=== PATIENT | female | born 1950 | race Caucasian/White ===

== ENCOUNTER 2025-02-11 15:56 | Emergency (ER) | payer MEDICARE, SELFPAY ==
[2025-02-11] VITALS (45 sets, daily range): BP systolic 74–129; BP diastolic 42–110; PULSE 90–100; RESP 18–33; TEMP 36.7; O2SAT 90–100; BMI 25.4
--- NOTE | 2025-02-11 16:31 | EKG_ITS ---
[address] [address] Test Date: 2025-02-11 Pat Name: Lizzie Casarez Department: [facility] Room: Gender: Female Education Program Manager: KENYETTA : 1950 Requested By: Order Number: [id number] Reading MD: Delano Tee Measurements Intervals [place] Rate: 92 P: 62 MO: 186 QRS: -40 QRSD: 152 T: 86 QT: 466 QTc: 576 Interpretive Statements Normal sinus rhythm Left axis deviation Left bundle branch block Electronically Signed On 02-14-2025 0:11:09 PDT by Delano Tee
[2025-02-11 16:50] LABS: Add Manual Diff / Slide Review NO; Basophils Absolute Auto 100 /uL (0-100); Basophils Percent Auto 0.7 % (0-2); Eosinophils Absolute Auto 0 /uL (0-450); Eosinophils Percent Auto 0.1 % (2-4); Hematocrit 41.9 % (36-46); Hemoglobin 13.4 g/dL (12.0-16.0); Lymphocytes Absolute Auto 900 /uL (1100-4500); Lymphocytes Percent Auto 7.2 % (25-40); Mean Corpuscular Hemoglobin 30.6 PG (26-34); Mean Corpuscular Volume 95.7 fL (80-100); Monocytes Absolute Auto 400 /uL (0-900); Monocytes Percent Auto 3.1 % (3-14); Neutrophils Absolute Auto 10900 /uL (1500-7000); Neutrophils Percent Auto 88.9 % (50-75); Platelet Count 269 X10^3/uL (150-400); Red Blood Cell Count 4.37 X10^6/uL (4.0-5.2); White Blood Cell Count 12.2 X10^3/uL (4.5-11.0)
[2025-02-11 16:51] LABS: Base Excess VBG -5.7 mmol/L (0-4); HCO3 VBG 19 mmol/L (24-28); Oxygen Saturation VBG 67 % (70-75); PCO2 VBG 33.3 mmHg (45-50); PO2 VBG 36 mmHg (35-45); Total CO2 VBG 18 mmol/L (24-29); pH VBG 7.36 (7.33-7.43)
[2025-02-11 17:02] LABS: Alanine Aminotransferase 34 IU/L (<35); Albumin 4.3 g/dL (3.5-5.0); Albumin Globulin Ratio 1.7 (1.0-2.8); Alkaline Phosphatase 83 U/L (38-126); Aspartate Aminotransferase 39 IU/L (14-36); BUN Creatinine Ratio 23.1 (6-22); Bilirubin Total 1.2 mg/dL (0.2-1.3); Blood Urea Nitrogen 39 mg/dL (7-17); Calcium 9.2 mg/dL (8.4-10.2); Carbon Dioxide 14 mmol/L (22-32); Chloride 95 mmol/L (98-107); Estimated Glomerular Filt Rate 31 mL/min (>60); Globulin 2.6 g/dL (1.7-4.1); HEMOLYSIS < 15 (0-50); Lipase 26 U/L (23-300); Sodium 129 mmol/L (137-145); Total Protein 6.9 g/dL (6.3-8.2)
[2025-02-11 17:06] LABS: Potassium 5.4 mmol/L (3.4-5.1)
[2025-02-11 17:14] LABS: Glucose 790 mg/dL (70-99)
[2025-02-11] MEDS: INSULIN REGULAR 100 UNIT/ML 3 ML VIAL 15 UNIT IV (18:02)
[2025-02-11] MEDS: SODIUM CHLORIDE 0.9% 1,000 ML 1000 ML IV (18:04)
--- NOTE | 2025-02-11 18:06 | ED.GENADULT ---
HPI - General Adult General Chief complaint: Diabetic Problem Stated complaint: high blood sugar 400 Time Seen by Provider: 02/11/25 18:05 Source: patient and family Mode of arrival: Ambulatory History of Present Illness HPI narrative: 74-year-old female traveling with her from home state of [place], history of diabetes, uses insulin pump, had difficulty 0500 this morning felt like she could not program the pump with phone connection, data seemed to be dumped from the program. Glucose measurements over 400. Denies abdominal pain, nausea, vomiting, chest pain, cough, shortness of breath. No headache or sore throat. Related Data Home Medications ?Medication ?Instructions ?Recorded ?Confirmed atorvastatin 40 mg tablet 40 mg PO DAILY 02/12/25 02/12/25 doxycycline monohydrate 100 mg 100 mg PO .Once 02/12/25 02/12/25 tablet gabapentin 100 mg capsule 100 mg PO DAILY 02/12/25 02/12/25 insulin lispro-aabc 100 unit/mL 02/12/25 subcutaneous solution (Lyumjev U-100 Insulin) levothyroxine 125 mcg tablet 125 mcg PO DAILY 02/12/25 02/12/25 (Synthroid) montelukast 10 mg tablet 10 mg PO ONCE PM 02/12/25 02/12/25 omeprazole 40 mg capsule,delayed 40 mg PO DAILY 02/12/25 02/12/25 release tolterodine 2 mg capsule,extended 2 mg PO Q24H 02/12/25 02/12/25 release 24 hr valsartan 160 1 tab PO DAILY 02/12/25 02/12/25 mg-hydrochlorothiazide 12.5 mg tablet venlafaxine 75 mg capsule,extended 75 mg PO DAILY 02/12/25 02/12/25 release 24 hr Allergies Allergy/AdvReac Type Severity Reaction Status Date / Time Penicillins Allergy Mild Hallucinati Verified 02/12/25 00:52 ng Patient History Social History Smoking Status: Never smoker Smoking Status: Never smoker Exam Narrative Exam Narrative: GENERAL: Well-developed patient, in mild distress. HEAD: Atraumatic. Normocephalic. EYES: Pupils equal round and reactive. Extraocular motions intact. No scleral icterus. No injection or drainage. ENT: Nose without bleeding, purulent drainage. Throat without erythema, tonsillar hypertrophy or exudate. Airway patent. NECK: Trachea midline. Non tender CARDIOVASCULAR: Regular rate and rhythm without murmurs, gallops, or rubs. RESPIRATORY: Clear to auscultation. Breath sounds equal bilaterally. No wheezes, rales, or rhonchi. GASTROINTESTINAL: Abdomen soft, non-tender, nondistended. EXTREMITIES: No edema or joint tenderness. BACK: Nontender without deformity or crepitance. No flank tenderness. NEURO: AOx3. Motor functions grossly nonfocal. SKIN: No rash or erythema of visible areas Initial Vital Signs Initial Vital Signs: Vital Signs Temperature 98.1 F 02/11/25 16:09 Pulse Rate 98 H 02/11/25 16:09 Respiratory Rate 20 02/11/25 16:09 Blood Pressure 109/53 L 02/11/25 16:09 Pulse Oximetry 99 02/11/25 16:09 Oxygen Delivery Method Room Air 02/11/25 16:09 Course Orders Ordered: Discontinued Medications Aspirin (Aspirin 81 Mg Chew Tab) 324 mg PO NOW ONE Stop: 02/12/25 01:01 Last Admin: 02/12/25 01:46 Dose: 324 mg Documented By: LITZY Heparin Sodium (Porcine) (Heparin 5,000 Unit/Ml Vial) 3,500 unit 60 unit/kg (3500 unit) IV NOW ONE Stop: 02/11/25 23:10 Last Admin: 02/12/25 00:21 Dose: 3,500 unit Documented By: LITZY Sodium Chloride (Normal Saline 0.9%) 1,000 mls @ 1,000 mls/hr IV BOLUS ONE Stop: 02/11/25 18:24 Last Infusion: 02/11/25 19:45 Dose: Infused Documented By: Admin: 02/11/25 18:04 Dose: 1,000 mls/hr Documented By: JOCE Lactated Ringer's (Lactated Ringers) 1,000 mls @ 1,000 mls/hr IV BOLUS ONE Stop: 02/11/25 19:06 Last Infusion: 02/11/25 19:45 Dose: Infused Documented By: Admin: 02/11/25 18:30 Dose: 1,000 mls/hr Documented By: JOCE INSULIN DRIP PREMIX (Myxredlin Drip Premix) 100 unit in 100 mls @ 6.124 mls/hr IV TITRATE MUKUND; Protocol Last Titration: 02/12/25 07:05 Dose: Infused Documented By: RLC Co-signed By: JOCE Titration: 02/12/25 06:05 Dose: 0.02 unit/kg/hr, 1.225 mls/hr Documented By: RLC Co-signed By: ROBY Titration: 02/12/25 01:05 Dose: 0.05 unit/kg/hr, 3.06 mls/hr Documented By: RLC Co-signed By: CHRIS Admin: 02/11/25 21:26 Dose: 0.1 unit/kg/hr, 6.124 mls/hr Documented By: RLC Co-signed By: CHRIS Lactated Ringer's (Lactated Ringers) 1,000 mls @ 1,000 mls/hr IV BOLUS ONE Stop: 02/11/25 20:43 Last Infusion: 02/11/25 20:36 Dose: Infused Documented By: Admin: 02/11/25 19:58 Dose: 1,000 mls/hr Documented By: RLC Sodium Chloride (Normal Saline 0.9%) 1,000 mls @ 250 mls/hr IV CONT MUKUDN Last Infusion: 02/12/25 07:19 Dose: Infused Documented By: Infusion: 02/11/25 21:53 Dose: 0 mls/hr Documented By: Admin: 02/11/25 20:57 Dose: 250 mls/hr Documented By: RLC Potassium Chloride/Sodium Chloride (Ns With Kcl 20 Meq) 1,000 mls @ 150 mls/hr IV CONT MUKUND Last Infusion: 02/12/25 07:23 Dose: Infused Documented By: Infusion: 02/12/25 01:27 Dose: 0 mls/hr Documented By: Admin: 02/11/25 21:54 Dose: 150 mls/hr Documented By: RLC Heparin Sodium/Dextrose (Heparin Drip) 25,000 unit in 500 mls @ 14.696 mls/hr IV CONT MUKUND; Protocol Last Titration: 02/12/25 06:20 Dose: 11 units/kg/hr, 13.472 mls/hr Documented By: RLC Co-signed By: ROBY Admin: 02/12/25 00:22 Dose: 12 units/kg/hr, 14.696 mls/hr Documented By: RLC Co-signed By: DKB Potassium Chloride/Dextrose/Sod Cl (Dextrose 5%-0.45%Ns W/Kcl 20meq) 1,000 mls @ 150 mls/hr IV CONT [facility] Last Infusion: 02/12/25 07:05 Dose: Infused Documented By: Admin: 02/12/25 01:30 Dose: 150 mls/hr Documented By: LITZY Insulin Glargine (Insulin Glargine 100 Unit/Ml 3ml Pen) 36 unit SUBCUT NOW ONE Stop: 02/12/25 04:12 Last Admin: 02/12/25 04:16 Dose: 36 unit Documented By: LITZY Co-signed By: AB Insulin Human Regular (Insulin Regular 100 Unit/Ml 3 Ml Vial) 15 unit IV NOW ONE Stop: 02/11/25 17:26 Last Admin: 02/11/25 18:02 Dose: 15 unit Documented By: JOCE Co-signed By: AB Levothyroxine Sodium (Levothyroxine 125 Mcg Tablet) 125 mcg PO DAILY@0600 [facility] Last Admin: 02/12/25 06:25 Dose: 125 mcg Documented By: LITZY Ondansetron HCl (Ondansetron 4 Mg/2 Ml Inj) 4 mg IV NOW PRN PRN Reason: Nausea And Vomiting Ondansetron HCl (Ondansetron 4 Mg Odt) 4 mg PO NOW PRN PRN Reason: Nausea And Vomiting Vital Signs Vital signs: Vital Signs - 8 hr 02/11/25 23:00 02/11/25 23:00 02/11/25 23:10 Pulse Rate 96 H 95 H Respiratory Rate 26 H 26 H Blood Pressure 98/55 L Pulse Oximetry 95 95 Oxygen Delivery Method Oxygen Flow Rate 02/11/25 23:10 02/11/25 23:30 02/11/25 23:32 Pulse Rate 94 H 93 H Respiratory Rate 28 H 29 H Blood Pressure 101/54 L Pulse Oximetry 95 95 Oxygen Delivery Method Oxygen Flow Rate 02/11/25 23:32 02/11/25 23:40 02/11/25 23:40 Pulse Rate 93 H Respiratory Rate 33 H Blood Pressure 95/51 L 98/54 L Pulse Oximetry 94 Oxygen Delivery Method Oxygen Flow Rate 02/11/25 23:50 02/11/25 23:50 02/12/25 00:00 Pulse Rate 94 H 97 H Respiratory Rate 21 21 Blood Pressure 88/50 L Pulse Oximetry 95 94 Oxygen Delivery Method Nasal Cannula Oxygen Flow Rate 1 02/12/25 00:00 02/12/25 00:10 02/12/25 00:10 Pulse Rate 94 H Respiratory Rate 27 H Blood Pressure 107/57 L 95/50 L Pulse Oximetry 95 Oxygen Delivery Method Oxygen Flow Rate 02/12/25 00:20 02/12/25 00:20 02/12/25 00:30 Pulse Rate 93 H 90 Respiratory Rate 40 H 31 H Blood Pressure 90/54 L Pulse Oximetry 95 96 Oxygen Delivery Method Oxygen Flow Rate 02/12/25 00:30 02/12/25 00:40 02/12/25 00:40 Pulse Rate 98 H Respiratory Rate 36 H Blood Pressure 91/54 L 111/58 L Pulse Oximetry 96 Oxygen Delivery Method Oxygen Flow Rate 02/12/25 00:50 02/12/25 00:50 02/12/25 01:00 Pulse Rate 91 H 94 H Respiratory Rate 29 H 33 H Blood Pressure 110/51 L Pulse Oximetry 96 94 Oxygen Delivery Method Nasal Cannula Oxygen Flow Rate 2 02/12/25 01:00 02/12/25 01:02 02/12/25 01:02 Pulse Rate 93 H Respiratory Rate 30 H Blood Pressure 98/28 L 93/45 L Pulse Oximetry 95 Oxygen Delivery Method Oxygen Flow Rate 02/12/25 01:05 02/12/25 01:05 02/12/25 01:10 Pulse Rate 95 H 93 H Respiratory Rate 31 H 21 Blood Pressure 106/53 L Pulse Oximetry 94 95 Oxygen Delivery Method Oxygen Flow Rate 02/12/25 01:10 02/12/25 01:20 02/12/25 01:20 Pulse Rate 95 H Respiratory Rate 37 H Blood Pressure 99/53 L 102/55 L Pulse Oximetry 94 Oxygen Delivery Method Oxygen Flow Rate 02/12/25 01:30 02/12/25 01:30 02/12/25 02:00 Pulse Rate 95 H Respiratory Rate 27 H Blood Pressure 108/53 L 98/55 L Pulse Oximetry 94 Oxygen Delivery Method Oxygen Flow Rate 02/12/25 02:00 02/12/25 03:31 02/12/25 04:00 Pulse Rate 92 H 91 H 90 Respiratory Rate 26 H 24 22 Blood Pressure Pulse Oximetry 93 89 L 94 Oxygen Delivery Method Nasal Cannula Room Air Nasal Cannula Oxygen Flow Rate 1 1 02/12/25 04:00 02/12/25 04:30 02/12/25 04:30 Pulse Rate 88 Respiratory Rate 21 Blood Pressure 104/59 L 105/59 L Pulse Oximetry 94 Oxygen Delivery Method Oxygen Flow Rate 02/12/25 05:00 02/12/25 05:00 Pulse Rate 89 Respiratory Rate 27 H Blood Pressure 113/75 Pulse Oximetry 95 Oxygen Delivery Method Nasal Cannula Oxygen Flow Rate 1 Medical Decision Making Lab Data Lab results reviewed: Yes I reviewed the patient's lab results. Lab results narrative: White blood cell count 41170, hemoglobin 13.4, platelets adequate. Glucose 790 quite elevated. BUN 39 with creatinine 1.69 both elevated, no comparisons available. Serum CO2 14. Anion gap 20. VBG 7.36 PH normal range noted. Sodium 129, potassium 5.4, chloride 95, serum CO2 14, anion gap 20. Slight AST elevation, other liver functions unremarkable. Lipase 26 normal. 02/12/25 05:31 02/12/25 05:31 Labs: Lab Results 02/11/25 02/11/25 02/11/25 Range/Units 16:40 16:44 18:55 WBC 12.2 H (4.5-11.0) X10^3/uL RBC 4.37 (4.0-5.2) X10^6/uL Hgb 13.4 (12.0-16.0) g/dL Hct 41.9 (36-46) % MCV 95.7 (80-100) fL MCH 30.6 (26-34) PG MCHC 32.0 (30-36) % RDW 15.0 H (11.6-14.8) % Plt Count 269 (150-400) X10^3/uL Neut % (Auto) 88.9 H (50-75) % Lymph % (Auto) 7.2 L (25-40) % Garden % (Auto) 3.1 (3-14) % Eos % (Auto) 0.1 L (2-4) % Baso % (Auto) 0.7 (0-2) % Neut # (Auto) 68844 H (6851-8919) /uL Lymph # (Auto) 900 L (3349-0568) /uL [place] # (Auto) 400 (0-900) /uL Eos # (Auto) 0 (0-450) /uL Baso # (Auto) 100 (0-100) /uL APTT (25.1-36.5) SECONDS VBG pH 7.36 (7.33-7.43) VBG pCO2 33.3 L (45-50) mmHg VBG pO2 36 (35-45) mmHg VBG HCO3 19 L (24-28) mmol/L VBG Total CO2 18 L (24-29) mmol/L VBG O2 Saturation 67 L (70-75) % VBG Base Excess -5.7 L (0-4) mmol/L Sodium 129 L 132 L (137-145) mmol/L Potassium 5.4 H 4.3 (3.4-5.1) mmol/L Chloride 95 L 101 (98-107) mmol/L Carbon Dioxide 14 L 11 L (22-32) mmol/L BUN 39 H 41 H (7-17) mg/dL Creatinine 1.69 H 1.86 H (0.52-1.04) mg/dL Estimated GFR 31 L 28 L (>60) mL/min BUN/Creatinine Ratio 23.1 H 22.0 (6-22) Glucose 790 H* 680 H* (70-99) mg/dL Calcium 9.2 8.8 (8.4-10.2) mg/dL Total Bilirubin 1.2 (0.2-1.3) mg/dL AST 39 H (14-36) IU/L ALT 34 (<35) IU/L Alkaline Phosphatase 83 (38-126) U/L Troponin I 0.192 H* (0.01-0.034) ng/mL Total Protein 6.9 (6.3-8.2) g/dL Albumin 4.3 (3.5-5.0) g/dL Globulin 2.6 (1.7-4.1) g/dL Albumin/Globulin Ratio 1.7 (1.0-2.8) Lipase 26 (23-300) U/L Ketones (<0.27) mmol/L 02/11/25 02/11/25 02/11/25 Range/Units 19:50 22:29 23:15 WBC (4.5-11.0) X10^3/uL RBC (4.0-5.2) X10^6/uL Hgb (12.0-16.0) g/dL Hct (36-46) % MCV (80-100) fL MCH (26-34) PG MCHC (30-36) % RDW (11.6-14.8) % Plt Count (150-400) X10^3/uL Neut % (Auto) (50-75) % Lymph % (Auto) (25-40) % [place] % (Auto) (3-14) % Eos % (Auto) (2-4) % Baso % (Auto) (0-2) % Neut # (Auto) (0649-4183) /uL Lymph # (Auto) (4254-9533) /uL Garden # (Auto) (0-900) /uL Eos # (Auto) (0-450) /uL Baso # (Auto) (0-100) /uL APTT 27 (25.1-36.5) SECONDS VBG pH (7.33-7.43) VBG pCO2 (45-50) mmHg VBG pO2 (35-45) mmHg VBG HCO3 (24-28) mmol/L VBG Total CO2 (24-29) mmol/L VBG O2 Saturation (70-75) % VBG Base Excess (0-4) mmol/L Sodium 135 L 133 L (137-145) mmol/L Potassium 4.0 4.2 (3.4-5.1) mmol/L Chloride 102 103 (98-107) mmol/L Carbon Dioxide 16 L 21 L (22-32) mmol/L BUN 40 H 38 H (7-17) mg/dL Creatinine 1.75 H 1.49 H (0.52-1.04) mg/dL Estimated GFR 30 L 37 L (>60) mL/min BUN/Creatinine Ratio 22.9 H 25.5 H (6-22) Glucose 476 H* D 394 H (70-99) mg/dL Calcium 8.7 8.7 (8.4-10.2) mg/dL Total Bilirubin (0.2-1.3) mg/dL AST (14-36) IU/L ALT (<35) IU/L Alkaline Phosphatase (38-126) U/L Troponin I 6.940 H* (0.01-0.034) ng/mL Total Protein (6.3-8.2) g/dL Albumin (3.5-5.0) g/dL Globulin (1.7-4.1) g/dL Albumin/Globulin Ratio (1.0-2.8) Lipase (23-300) U/L Ketones 1.40 H (<0.27) mmol/L 02/12/25 02/12/25 Range/Units 01:51 05:31 WBC (4.5-11.0) X10^3/uL RBC (4.0-5.2) X10^6/uL Hgb 11.7 L (12.0-16.0) g/dL Hct 34.3 L (36-46) % MCV (80-100) fL MCH (26-34) PG MCHC (30-36) % RDW (11.6-14.8) % Plt Count 247 (150-400) X10^3/uL Neut % (Auto) (50-75) % Lymph % (Auto) (25-40) % Garden % (Auto) (3-14) % Eos % (Auto) (2-4) % Baso % (Auto) (0-2) % Neut # (Auto) (6540-1074) /uL Lymph # (Auto) (0290-0326) /uL [place] # (Auto) (0-900) /uL Eos # (Auto) (0-450) /uL Baso # (Auto) (0-100) /uL APTT 82 H* D (25.1-36.5) SECONDS VBG pH (7.33-7.43) VBG pCO2 (45-50) mmHg VBG pO2 (35-45) mmHg VBG HCO3 (24-28) mmol/L VBG Total CO2 (24-29) mmol/L VBG O2 Saturation (70-75) % VBG Base Excess (0-4) mmol/L Sodium 137 136 L (137-145) mmol/L Potassium 3.9 4.2 (3.4-5.1) mmol/L Chloride 109 H 109 H (98-107) mmol/L Carbon Dioxide 22 23 (22-32) mmol/L BUN 36 H 37 H (7-17) mg/dL Creatinine 1.31 H 1.26 H (0.52-1.04) mg/dL Estimated GFR 43 L 45 L (>60) mL/min BUN/Creatinine Ratio 27.5 H 29.4 H (6-22) Glucose 186 H D 143 H (70-99) mg/dL Calcium 8.4 8.6 (8.4-10.2) mg/dL Total Bilirubin (0.2-1.3) mg/dL AST (14-36) IU/L ALT (<35) IU/L Alkaline Phosphatase (38-126) U/L Troponin I (0.01-0.034) ng/mL Total Protein (6.3-8.2) g/dL Albumin (3.5-5.0) g/dL Globulin (1.7-4.1) g/dL Albumin/Globulin Ratio (1.0-2.8) Lipase (23-300) U/L Ketones (<0.27) mmol/L Point of Care Testing Glucose POC 114 Urine Dip Bedside Urine Glucose 250 mg/dl Bedside Urine Bilirubin - Negative Bedside Urine Ketone - Negative Urine Specific [place] 1.010 Bedside Urine Occult Blood - Negative Bedside Urine pH 6.0 Bedside Urine Protein - Negative Bedside Urine Urobilinogen - Negative Bedside Urine Nitrite - Negative Bedside Urine Leukocytes - Negative Esterase Point of care testing: Point of Care Testing Glucose POC 114 Urine Dip Bedside Urine Glucose 250 mg/dl Bedside Urine Bilirubin - Negative Bedside Urine Ketone - Negative Urine Specific [place] 1.010 Bedside Urine Occult Blood - Negative Bedside Urine pH 6.0 Bedside Urine Protein - Negative Bedside Urine Urobilinogen - Negative Bedside Urine Nitrite - Negative Bedside Urine Leukocytes - Negative Esterase ECG Data Attestation: I personally reviewed and interpreted this ECG as follows: Interpretation: Normal sinus rhythm with rate of 92, left bundle branch block noted. MO 186, QRS 152, QTC 576. [facility] Narrative Medical decision making narrative: 74-year-old female traveling from [place], history of diabetes on insulin pump, insulin pump failure early this morning, no longer responding to commands from linked phone/jorge alberto, discontinued. Sugars been getting higher through the day. Triage blood sugar 790 noted. Anion gap 20. VBG shows pH 7.36. Ketones positive. IV fluid bolus, initial insulin 15 units had been ordered already. Patient had diminished blood pressure. Initial potassium slight elevation. Blood pressure decreased after IV insulin bolus and 1 L, will give 2nd L as Lactated Ringer's. Repeat BMP pending. DKA protocol insulin infusion ordered. Subsequent blood pressures improved. EKG performed from triage, shows left bundle branch pattern, no chest pain or shortness of breath. No comparisons, patient is from [place]. We will add troponin to initial draw, and send repeat interval troponin. Initial troponin 0.19 mild elevation, repeat troponin 6.94 quite elevated. Still not having any chest pain or shortness of breath. No nausea or vomiting or diaphoresis. However interval increase concerning for non type 2 injury elevation, we will treat for non STEMI for now, add IV heparin bolus then infusion. Oral aspirin. Transfer to cardiac catheterization lab capable facility. 2320, case discussed with cardiology [place] Dr. Tapia, does not feel that [employer] activation is warranted given lack of anginal/equivalents, LBBB on EKG noted without out of state comparisons, agrees with need for transfer for possible non STEMI, and initiation of heparin and aspirin. 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 0030, case discussed with [facility] hospitalist Dr. Hurtado, who accepts patient for transfer Serial BNP is, improving renal function, narrowing anion gap, glucose lowering into 400-300 range, transition to dextrose containing fluid once less glucose less than 250. 0300, bed to be available later this morning, EMS transport arranged for 0800 0700, transport arriving within the hour, transfer to [facility] as planned Critical Care Time Critical Care Time Critical Care Time: Yes Total Critical Care Time: 35 Attestation: The high probability of a clinically significant, sudden or life threatening deterioration of the [cardiopulmonary, endocrine, metabolic] system(s) required my full and direct attention, intervention and personal management. The aggregate critical care time was [35] minutes. This time is in addition to time spent performing reported procedures but includes the following: [x] Data Review and interpretation [x] Patient assessment and monitoring of vital signs [x] Documentation [x] Medication orders and management Discharge Plan Departure Patient Disposition: [facility] Clinical Impression: Diabetic ketoacidosis, Non-ST elevated myocardial infarction (non-STEMI) Prescriptions: No Action atorvastatin 40 mg tablet 40 mg PO DAILY doxycycline monohydrate 100 mg tablet 100 mg PO .Once tolterodine 2 mg capsule,extended release 24hr 2 mg PO Q24H omeprazole 40 mg capsule,delayed release(DR/EC) 40 mg PO DAILY levothyroxine [Synthroid] 125 mcg tablet 125 mcg PO DAILY montelukast 10 mg tablet 10 mg PO ONCE PM gabapentin 100 mg capsule 100 mg PO DAILY venlafaxine 75 mg capsule,extended release 24hr 75 mg PO DAILY valsartan-hydrochlorothiazide 160-12.5 mg tablet 1 tab PO DAILY Lyumjev U-100 Insulin 100 unit/mL solution Patient Comments: [NO ORIGINAL SIG]
[2025-02-11] MEDS: LACTATED RINGERS 1,000 ML 1000 ML IV ×2 (18:30→19:58)
[2025-02-11 19:21] LABS: Blood Urea Nitrogen 41 mg/dL (7-17); Calcium 8.8 mg/dL (8.4-10.2); Carbon Dioxide 11 mmol/L (22-32); Chloride 101 mmol/L (98-107); Estimated Glomerular Filt Rate 28 mL/min (>60); HEMOLYSIS < 15 (0-50); Potassium 4.3 mmol/L (3.4-5.1); Sodium 132 mmol/L (137-145)
[2025-02-11 19:32] LABS: Glucose 680 mg/dL (70-99)
[2025-02-11 19:33] LABS: Troponin I 0.192 ng/mL (0.01-0.034)
[2025-02-11] MEDS: SODIUM CHLORIDE 0.9% 1,000 ML 250 ML IV (20:57)
[2025-02-11 21:03] LABS: BUN Creatinine Ratio 22.9 (6-22); Blood Urea Nitrogen 40 mg/dL (7-17); Calcium 8.7 mg/dL (8.4-10.2); Carbon Dioxide 16 mmol/L (22-32); Chloride 102 mmol/L (98-107); Estimated Glomerular Filt Rate 30 mL/min (>60); Glucose 476 mg/dL (70-99); HEMOLYSIS < 15 (0-50); Sodium 135 mmol/L (137-145)
[2025-02-11] MEDS: INSULIN DRIP PREMIX 100 UNIT/100 ML PLAST..BAG 6.124 UNIT IV (21:26)
[2025-02-11] MEDS: KCL 20 MEQ IN NS 1,000 ML 150 MEQ IV (21:54)
[2025-02-11 22:51] LABS: BUN Creatinine Ratio 25.5 (6-22); Blood Urea Nitrogen 38 mg/dL (7-17); Calcium 8.7 mg/dL (8.4-10.2); Carbon Dioxide 21 mmol/L (22-32); Chloride 103 mmol/L (98-107); Estimated Glomerular Filt Rate 37 mL/min (>60); Glucose 394 mg/dL (70-99); HEMOLYSIS < 15 (0-50); Potassium 4.2 mmol/L (3.4-5.1); Sodium 133 mmol/L (137-145)
[2025-02-11 23:49] LABS: PTT Partial Thromboplastin Tim 27 SECONDS (25.1-36.5)
[2025-02-12] VITALS (24 sets, daily range): BP systolic 90–138; BP diastolic 28–75; PULSE 85–99; RESP 18–40; O2SAT 89–96
[2025-02-12] MEDS: HEPARIN 5,000 UNIT/ML VIAL 3500 UNIT IV (00:21)
[2025-02-12] MEDS: HEPARIN DRIP 25,000 UNIT/500 ML IV.SOLN 14.696 UNIT IV (00:22)
[2025-02-12] MEDS: DEXTROSE 5%-0.45NS W/KCL 20MEQ 1,000 ML 150 MEQ IV (01:30)
[2025-02-12] MEDS: ASPIRIN 81 MG CHEW TAB 324 MG PO (01:46)
[2025-02-12 02:12] LABS: BUN Creatinine Ratio 27.5 (6-22); Blood Urea Nitrogen 36 mg/dL (7-17); Calcium 8.4 mg/dL (8.4-10.2); Carbon Dioxide 22 mmol/L (22-32); Chloride 109 mmol/L (98-107); Estimated Glomerular Filt Rate 43 mL/min (>60); Glucose 186 mg/dL (70-99); HEMOLYSIS < 15 (0-50); Potassium 3.9 mmol/L (3.4-5.1); Sodium 137 mmol/L (137-145)
[2025-02-12] MEDS: INSULIN GLARGINE 100 UNIT/ML 3ML PEN 36 UNIT SUBCUT (04:16)
[2025-02-12 05:45] LABS: Hematocrit 34.3 % (36-46); Hemoglobin 11.7 g/dL (12.0-16.0); Platelet Count 247 X10^3/uL (150-400)
[2025-02-12 06:01] LABS: BUN Creatinine Ratio 29.4 (6-22); Blood Urea Nitrogen 37 mg/dL (7-17); Calcium 8.6 mg/dL (8.4-10.2); Carbon Dioxide 23 mmol/L (22-32); Chloride 109 mmol/L (98-107); Estimated Glomerular Filt Rate 45 mL/min (>60); Glucose 143 mg/dL (70-99); HEMOLYSIS < 15 (0-50); Potassium 4.2 mmol/L (3.4-5.1); Sodium 136 mmol/L (137-145)
[2025-02-12 06:17] LABS: PTT Partial Thromboplastin Tim 82 SECONDS (25.1-36.5)
[2025-02-12] MEDS: LEVOTHYROXINE 125 MCG TABLET PO (06:25)
== END 2025-02-12 08:20 | disposition short-term general hospital (02) ==
PROVIDERS: Emergency Medicine; Emergency Provider Emergency Medicine
DX: E11.10 Type 2 diabetes mellitus with ketoacidosis without coma (principal); Z79.4 Long term (current) use of insulin; I21.4 Non-ST elevation (NSTEMI) myocardial infarction
CPT/HCPCS: 36415; 80048; 80053; 81003; 82009; 82805; 82962; 83690; 84484; 85014; 85018; 85025; 85049; 85730; 93005; 96361; 96365; 96366; 96368; 96372; 96375; 99285; 99291; J1644